=== PATIENT | male | born 1960 ===

== ENCOUNTER 2016-12-21 08:18 | Day surgery (SDC) | payer OTHER ==
[2016-12-21] MEDS ORDERED: Lactated Ringer's 500 ML IV ONE (09:50)
[2016-12-21] MEDS ORDERED: Midazolam 2 MG/2 ML VIAL ONE (11:08)
[2016-12-21] MEDS ORDERED: Propofol 10 mg/ml Inj (20 ML) ONE (11:08)
[2016-12-21 11:49] VITALS: BP 128/81; O2SAT 100
[2016-12-21 11:50] VITALS: PULSE 54; RESP 14; TEMP 96.9
== END 2016-12-21 12:31 | disposition home or self-care (01) ==
LOC: H.ENDO 08:18
PROVIDERS: ATTEND Internal Medicine Gastroenterology
DX: Z12.11 Encounter for screening for malignant neoplasm of colon (principal); K64.8 Other hemorrhoids; I10 Essential (primary) hypertension; E55.9 Vitamin D deficiency, unspecified; Z91.048 Other nonmedicinal substance allergy status
CPT/HCPCS: 45378; J2250; J2704; J7120